=== PATIENT | female | born 1995 | race Caucasian/White ===

== ENCOUNTER 2022-03-08 12:19 | Emergency (ER) | payer SELFPAY ==
[~2022-03-08] VITALS: Ht 154.9 cm; Wt 44.3 kg
--- NOTE | 2022-03-08 12:41 | PHYS DOC ---
Past Medical History Past Surgical History: Adult General Chief Complaint Chief Complaint: ABDOMINAL PAIN IN [facility] HPI Patient is a 26 year old female who presents with right lower quadrant pain. Has been having pain in the lower part of her abdomen over the last 4 days. Pain initially started on the left side and migrated to the right this morning. Pain became more severe this morning. She has mild nausea but no vomiting. Denies urinary symptoms. No irregular vaginal bleeding or discharge. She states her last menstrual cycle was about 2 months earlier and she did take a test last week which was positive. She is a and her initial was complicated only by distress and she underwent subsequent section. She has no other history of abdominal surgeries. Has not had a fever. Review of Systems Review of Systems Constitutional: Denies fever or chills Eyes: Denies change in visual acuity HENT: Denies Respiratory: Denies cough or shortness of breath Cardiovascular: No additional information not addressed in HPI GI: As documented in HPI : Denies dysuria Musculoskeletal: Denies back pain or joint pain Integument: Denies rash or skin lesions Neurologic: Denies headache Endocrine: Denies All other systems were reviewed and found to be within normal limits, except as documented in this note. Current Medications Current Medications Current Medications Medications (Trade) Dose Ordered Sig/Natalie Start Time Stop Time Status Last Admin Dose Admin Morphine Sulfate (Morphine Sulfate) 4 mg 1X ONCE 03/08/22 13:15 03/08/22 13:16 DC 03/08/22 13:25 4 MG Ondansetron HCl (Zofran) 4 mg 1X ONCE 03/08/22 13:15 03/08/22 13:16 DC 03/08/22 13:24 4 MG Allergies Allergies Allergies Coded Allergies Type Severity Reaction Last Updated Verified No Known Drug Allergies 03/08/22 No Physical Exam Physical Exam Constitutional: Well developed, well nourished, mild distress due to pain HENT: Moist mucous membranes, nares patent Eyes: PERRLA, EOMI Neck: Normal range of motion Cardiovascular:Heart rate regular rhythm, no murmur Lungs & Thorax: Bilateral breath sounds clear to auscultation Abdomen: Soft, subjectively tender over lower quadrants. No guarding or rebound. Nonperitoneal exam Skin: Warm, dry, no erythema, no rash. Back: Normal ROM Extremities: Normal ROM Neurologic: Alert and oriented X 3 Psychologic: Affect normal Current Patient Data Vital Signs Vital Signs Date Time Temp Pulse Resp B/P (MAP) Pulse Ox O2 Delivery O2 Flow Rate FiO2 03/08/22 13:25 18 Room Air 03/08/22 12:20 98.1 76 105/58 (74) 99 98.1 Lab Values Laboratory Tests Test 03/08/22 12:35 03/08/22 12:41 03/08/22 13:14 Urine Collection Type Unknown Urine Color (Auto) Light yellow Urine Turbidity Clear Urine pH (Auto) 7.0 (<5.0-8.0) Urine Specific [place] 1.023 (1.000-1.030) Urine Protein (Auto) Negative mg/dL (Negative) Urine Glucose (Auto)(UA) Negative mg/dL (Negative) Urine Ketones (Auto) 10 mg/dL (Negative) Urine Blood (Auto) Negative (Negative) Urine Nitrite (Auto) Negative (Negative) Urine Bilirubin (Auto) Negative (Negative) Urine Urobilinogen (Auto) Normal mg/dL (Normal) Urine Leukocyte Esterase (Auto) Negative (Negative) Urine RBC 0 /HPF (0-2) Urine WBC 0 /HPF (0-4) Urine Squamous Epithelial Cells Few /LPF Urine Bacteria Few /HPF (0-FEW) Urine Mucus Slight /LPF POC Urine HCG, Qualitative Hcg positive (Negative) White Blood Count 8.7 x10^3/uL (4.0-11.0) Red Blood Count 3.57 x10^6/uL (3.50-5.40) Hemoglobin 11.0 g/dL (12.0-15.5) L Hematocrit 30.7 % (36.0-47.0) L Mean Corpuscular Volume 86 fL (79-100) Mean Corpuscular Hemoglobin 31 pg (25-35) Mean Corpuscular Hemoglobin Concent 36 g/dL (31-37) Red Cell Distribution Width 12.9 % (11.5-14.5) Platelet Count 286 x10^3/uL (140-400) Neutrophils (%) (Auto) 70 % (31-73) Lymphocytes (%) (Auto) 23 % (24-48) L Monocytes (%) (Auto) 6 % (0-9) Eosinophils (%) (Auto) 1 % (0-3) Basophils (%) (Auto) 1 % (0-3) Neutrophils # (Auto) 6.1 x10^3/uL (1.8-7.7) Lymphocytes # (Auto) 2.0 x10^3/uL (1.0-4.8) Monocytes # (Auto) 0.5 x10^3/uL (0.0-1.1) Eosinophils # (Auto) 0.1 x10^3/uL (0.0-0.7) Basophils # (Auto) 0.0 x10^3/uL (0.0-0.2) Maternal Serum HCG Beta Subunit 83041 mIU/mL (0-5) H Sodium Level 135 mmol/L (136-145) L Potassium Level 3.4 mmol/L (3.5-5.1) L Chloride Level 102 mmol/L (98-107) Carbon Dioxide Level 25 mmol/L (21-32) Anion Gap 8 (6-14) Blood Urea Nitrogen 8 mg/dL (7-20) Creatinine 0.5 mg/dL (0.6-1.0) L Estimated GFR (Cockcroft-Gault) 151.6 Glucose Level 80 mg/dL (70-99) Calcium Level 8.6 mg/dL (8.5-10.1) Laboratory Tests 03/08/22 13:14 Laboratory Tests 03/08/22 13:14 EKG EKG [] Radiology/Procedures Radiology/Procedures [] Course & Med Decision Making Course & Med Decision Making Pertinent Labs and Imaging studies reviewed. (See chart for details) Seen and examined on arrival to her room. Her pain does seem significant. Her abdominal exam is nonperitoneal. Today, we will order ultrasound of the pelvic region and give medications for symptom relief along with checking labs. 13:50: Patient is reevaluated. Her pain is much improved. Labs are reviewed and are nonacute. Ultrasound results pending at this time. She is offered more medication for discomfort but declines the need. 14:45: Continues to have improvement in pain symptoms. Results of ultrasound have returned with single IUP. No torsion. No ectopic. Stable for discharge home. Recommend she use Tylenol only for pain. Follow-up with her primary OB physician. Come back to the ER for any new or severely worsening symptoms. Dragon Disclaimer Dragon Disclaimer This electronic medical record was generated, in whole or in part, using a voice recognition dictation system. Departure Departure Impression: Primary Impression: Pelvic pain affecting Disposition: 01 HOME / SELF CARE / HOMELESS Condition: GOOD Referrals: NO PCP (PCP) Patient Instructions: Pelvic Pain, Female LAKSHMI VARGHESE DO Mar 08, 2022 12:41
[2022-03-08] MEDS ORDERED: MORPHINE SULFATE 4 MG/ML INJ. IVP ONE (13:15)
[2022-03-08] MEDS ORDERED: ONDANSETRON PF 4 MG/2 ML VIAL. IVP ONE (13:15)
[2022-03-08 13:24] LABS: BASO % 1 % (0-3); EOS # 0.1 x10^3/uL (0.0-0.7); EOS % 1 % (0-3); HEMATOCRIT 30.7 % (36.0-47.0); LYMPH % 23 % (24-48); MEAN CORPUSCULAR HEMOGLOBIN 31 pg (25-35); MEAN CORPUSCULAR HGB CONC 36 g/dL (31-37); MEAN CORPUSCULAR VOLUME 86 fL (79-100); MONO # 0.5 x10^3/uL (0.0-1.1); MONO % 6 % (0-9); NEUT # 6.1 x10^3/uL (1.8-7.7); NEUT % 70 % (31-73); PLATELET COUNT 286 x10^3/uL (140-400); RED BLOOD COUNT 3.57 x10^6/uL (3.50-5.40); RED CELL DISTRIBUTION WIDTH 12.9 % (11.5-14.5); WHITE BLOOD COUNT 8.7 x10^3/uL (4.0-11.0)
[2022-03-08 13:42] LABS: BACTERIA,URINE FEW /HPF (0-FEW); RBC,URINE 0 /HPF (0-2); WBC,URINE 0 /HPF (0-4)
[2022-03-08 13:45] LABS: CALCIUM 8.6 mg/dL (8.5-10.1); CREATININE 0.5 mg/dL (0.6-1.0); GFR 151.6; POTASSIUM 3.4 mmol/L (3.5-5.1)
--- NOTE | 2022-03-08 14:37 | RAD ---
EXAMINATION: US OB <14 WKS +TV, 03/08/2022 1:11 PM CLINICAL INDICATION: Left pelvic pain, early TECHNIQUE: Grayscale, color and spectral Doppler ultrasound images of the pelvis via first trimester OB protocol. COMPARISON: None. FINDINGS: The uterus measures 9 x 8 x 8 cm. There is an intrauterine gestational sac containing an embryo with crown-rump length of 2.78 cm, consistent with gestational age 9 weeks 4 days. heart rate 173 bp m. No subchorionic hemorrhage seen. The right ovary measures 2.0 x 0.9 x 1.1 cm. The left ovary measures 3.7 x 2.4 x 2.3 cm. There is nor mal ovarian blood flow bilaterally. No adnexal mass or free fluid. IMPRESSION: Single living intrauterine with gestational age by ultrasound 9 weeks 4 days. Electronically signed by: Isabel Rodrigues MD (03/08/2022 2:35 PM) [id number]
[2022-03-08 14:50] VITALS: BP 110/62
[2022-03-08] MEDS ORDERED: HYDR-2761 PO (14:53)
== END 2022-03-08 14:55 | disposition home or self-care (01) ==
LOC: ER 12:19
DX: O26.891 Other specified pregnancy related conditions, first trimester (principal); R10.2 Pelvic and perineal pain; R10.31 Right lower quadrant pain; Z3A.00 Weeks of gestation of pregnancy not specified
CPT/HCPCS: 36415; 76801; 80048; 81001; 81025; 84702; 85025; 96374; 96375; 99284; J2270; J2405